=== PATIENT | male | born 1945 | race Caucasian/White ===

== ENCOUNTER 2020-08-17 06:31 | Emergency (ER) | payer OTHER, MEDICARE ==
[~2020-08-17] VITALS: Ht 190.5 cm; Wt 83.9 kg
[~2020-08-17 06:31] MED LIST: AMBIEN 5 MG TABL5 M1 PO; ATORVASTATIN CA20 MG PO; CIPROFLOXACIN500 M1 PO; COLACE 100 MG100 MG PO; LIPITOR10 MG PO; NEXIUM40 MG PO; NORCO 5-325 TA1 EACH PO; OXYCODON-ACETA1 EAC1 PO; TAMSULOSIN HCL0.4 M1 PO; ZOFRAN ODT4 MG PO
[2020-08-17] MEDS ORDERED: MELATONIN10 M3 PO (07:05)
[2020-08-17] MEDS ORDERED: CLONAZEPAM 0.50.5 M1 PO (07:06)
[2020-08-17] MEDS ORDERED: AMBIEN 10 MG TA10 MG PO (07:06)
[2020-08-17 07:07] LABS: ABSOLUTE NEUTROPHILS 8.7 thou/uL (1.4-8.2); BASOPHILS 0.4 % (0.0-2.0); EOSINOPHILS 0.5 % (0.0-3.0); HEMATOCRIT 45.2 % (42.0-52.0); HEMOGLOBIN 15.5 gm/dL (14.0-18.0); LYMPHOCYTES 11.1 % (24.0-44.0); MCHC 34.2 g/dL (28.0-37.0); MCV 99.4 fL (80.0-100.0); MONOCYTES 6.2 % (1.0-8.0); PLATELET COUNT 176 thou/uL (150-400); POLYS 81.8 % (36.0-66.0); RBC 4.55 mil/uL (4.50-6.00); RDW 13.3 % (10.5-14.5); WBC 10.7 thou/uL (4.0-11.0)
[2020-08-17 07:10] LABS: CALCIUM 9.4 mg/dL (8.5-10.1); CREATININE 1.1 mg/dL (0.7-1.3); POTASSIUM 4.5 mmol/L (3.5-5.1)
[2020-08-17 07:16] LABS: ALBUMIN 3.9 g/dL (3.4-5.0); TOTAL BILIRUBIN 0.4 mg/dL (0.2-1.0); TOTAL PROTEIN 6.9 g/dL (6.4-8.2)
[2020-08-17 08:01] LABS: URINE BILIRUBIN NEGATIVE (Negative); URINE BLOOD TRACE (Negative); URINE CLARITY CLEAR; URINE COLOR YELLOW; URINE GLUCOSE-RANDOM* NEGATIVE (Negative); URINE KETONES NEGATIVE (Negative); URINE LEUKOCYTES-REFLEX NEGATIVE (Negative); URINE NITRITE-REFLEX NEGATIVE (Negative); URINE PROTEIN (DIPSTICK) NEGATIVE (Negative); URINE SPECIFIC GRAVITY 1.025 (1.005-1.035); URINE UROBILINOGEN 0.2 E.U./dl (0.2-1.0)
[2020-08-17] MEDS ORDERED: NORCO7.5 PO (08:14)
[2020-08-17] MEDS ORDERED: ZOFRAN ODT4 MG PO (08:14)
[2020-08-17] MEDS ORDERED: FLOMAX0.4 MG PO (08:14)
[2020-08-17] MEDS ORDERED: IBUPROFEN 600600 M1 PO (08:14)
[2020-08-17 08:40] VITALS: BP 156/67
== END 2020-08-17 08:40 | disposition home or self-care (01) ==
LOC: ER 06:31
PROVIDERS: Emergency Medicine
DX: N20.1 Calculus of ureter (principal); E78.00 Pure hypercholesterolemia, unspecified; K21.9 Gastro-esophageal reflux disease without esophagitis; Z79.899 Other long term (current) drug therapy

== ENCOUNTER 2020-08-23 19:27 | Emergency (ER) | payer OTHER, MEDICARE ==
[~2020-08-23] VITALS: Ht 190.5 cm; Wt 83.9 kg
[~2020-08-23 19:27] MED LIST changes: +AMBIEN 10 MG TA10 MG PO; +CLONAZEPAM 0.50.5 M1 PO; +FLOMAX0.4 MG PO; +IBUPROFEN 600600 M1 PO; +MELATONIN10 M3 PO; +NORCO7.5 PO
[2020-08-23 20:41] LABS: URINE BLOOD NEGATIVE (Negative); URINE CLARITY CLEAR; URINE COLOR AMBER; URINE GLUCOSE-RANDOM* NEGATIVE (Negative); URINE KETONES 2+ (Negative); URINE LEUKOCYTES-REFLEX NEGATIVE (Negative); URINE NITRITE-REFLEX POSITIVE (Negative); URINE PROTEIN (DIPSTICK) TRACE (Negative); URINE SPECIFIC GRAVITY >= 1.030 (1.005-1.035)
[2020-08-23 20:43] LABS: ICTOTEST (BILI CONFIRMATORY) Negative (Negative); URINE BILIRUBIN NEGATIVE (Negative)
[2020-08-23 20:49] LABS: HYALINE CASTS 4-10 Moderate /LPF (None Seen); SQUAMOUS 0-3 Few /LPF (0-3); URINE RBC 1-2 Rare /HPF (NONE SEEN); URINE WBC-REFLEX 6-15 Few /HPF (0-5)
[2020-08-23 20:50] LABS: BACTERIA-REFLEX 1-9 Few /HPF (None Seen); CALCIUM OXALATE 0-3 Few /LPF (None Seen); MUCUS 4-6 Moderate strn/LPF (None Seen)
[2020-08-23] MEDS ORDERED: BISACODYL10 MG RECTAL (22:35)
[2020-08-23 22:45] VITALS: BP 154/78
== END 2020-08-23 22:45 | disposition home or self-care (01) ==
LOC: ER 19:27
PROVIDERS: Emergency Medicine
DX: K59.00 Constipation, unspecified (principal); E78.00 Pure hypercholesterolemia, unspecified; K21.9 Gastro-esophageal reflux disease without esophagitis; Z87.442 Personal history of urinary calculi; Z79.899 Other long term (current) drug therapy